=== PATIENT | male | born 1990 | race Caucasian/White ===

== ENCOUNTER → 2018-11-18 17:44 | Outpatient (CLI) | payer BC, SELFPAY ==
[2018-11-18 13:49] VITALS: BMI 43.9
== END ==
PROVIDERS: Referring Provider Surgery; Visit Provider Surgery
DX: T87.89 Other complications of amputation stump (principal); S62.632B Displaced fracture of distal phalanx of right middle finger, initial encounter for open fracture; S68.622A Partial traumatic transphalangeal amputation of right middle finger, initial encounter
CPT/HCPCS: 87070; 87075; 87077; 87186; 87205

== ENCOUNTER → 2018-12-19 16:25 | Outpatient (CLI) | payer BC, SELFPAY ==
[2018-12-19 15:38] VITALS: BMI 43.9
--- NOTE | 2018-12-19 16:30 | RAD_ITS ---
HISTORY: Trauma COMPARISON: None FINDINGS: XR right third finger 3 views There is bony and soft tissue amputation of the majority of the distal phalanx, right third finger. The residual distal phalangeal stump shows a comminuted fracture. Additional nondisplaced comminuted fracture of the middle phalanx. The middle phalangeal fracture shows a longitudinal component involving the majority of the phalanx. The proximal phalanx appears intact. No dislocation. Joint spaces are grossly preserved. No definite radiopaque foreign body. RAD/Finger(s) Min 2 Views IMPRESSION: 1. Significant amputation deformity with fractures of the distal and middle phalanges, right third finger. Details above. at 0550 Reported and signed by: Jasper Ness MD Electronically Signed: Jasper Ness, at 5:49 EST Tel , Service support ,
== END ==
LOC: MTRAD 16:29
PROVIDERS: Family Provider Nurse Practitioner Family; PCP Nurse Practitioner Family; Referring Provider Surgery; Visit Provider Surgery
DX: S68.622A Partial traumatic transphalangeal amputation of right middle finger, initial encounter (principal); S62.632B Displaced fracture of distal phalanx of right middle finger, initial encounter for open fracture; T87.89 Other complications of amputation stump; F17.200 Nicotine dependence, unspecified, uncomplicated
CPT/HCPCS: 73140

== ENCOUNTER 2018-12-24 09:33 | Day surgery (SDC) | payer BC, SELFPAY ==
[2018-12-19 15:38] VITALS: BMI 43.9
--- NOTE | 2018-12-23 21:07 | HP.PCM_ITS ---
History and Physical Date of Admission: 12/24/18 HISTORY OF PRESENT ILLNESS 28 year old male presents for evaluation of nonhealing ulcer tip amputation stump right long finger. On 10/12/18 he got his right long finger accidentally caught in a winch. He went to [facility] ED for treatment. Xray showed a traumatic amputation with osseous fragmentation of the residual third distal phalanx and comminuted third middle phalanx fractures. The wound was cleansed and partially repaired. No bone was seen after the partial repair. The wound was dressed and he was discharged on Cleocin. Since his ED visit he was seen at [facility] for management of his wound on 10/18/18. Repeat right hand x-ray showed a distal amputation of the tuft of the right middle finger, the proximal half of the tuft remains intact, no disruption of the articulating surface of the DIP joint. Some healing has occurred since the injury with a decrease in the size of the wound, but there is concern about the presence of bone in the wound and the risk of developing osteomyelitis. The patient presented to my office on 11/18/18 for evaluation. A wound culture was done which showed MRSE and Anaerobic cocci. He was placed on Doxycycline and Flagyl. At that November office visit, recommendations were made for surgical debridement with revision amputation. Patient wanted to hold off on any surgery at that time since he had noticed the initial wound getting smaller. He wanted to see if the wound would heal. Patient is right hand dominant. He states he has been back to work and is doing ok. He was evaluated last week in the office and the ulcer remains unhealed and is a little larger. It was also noted there was nail growth in the ulcer as well. Xray was done which showed significant amputation deformity with fracture right third finger. He presents today for operative debridement and revision amputation. PAST MEDICAL HISTORY Heart attack Pacemaker Sleep apnea PAST SURGICAL HISTORY None ALLERGIES No Known Allergies MEDICATIONS Omeprazole [Prilosec] doxycycline monohydrate FAMILY HISTORY Other - High cholesterol, Hypertension, Liver disease SOCIAL HISTORY Smoking Status: Current some day smoker alcohol intake: current substance use type: does not use REVIEW OF SYSTEMS General - Denies fever and weight loss. Has fatigue. Eyes - Denies cataracts and glaucoma. ENT - Denies nasal congestion and sore throat. Endocrine - Denies excessive thirst and urination. Skin - Denies suspicious lesions and skin cancer. Musculoskeletal - Denies joint pain, joint stiffness, weakness of muscles and joints, back pain, and arthritis. Has nonhealing ulcer tip amputation stump right long finger with associated distal phalanx tuft fracture. Neuro - Denies headaches. Cardiovascular - Denies chest pain, fatigue, and shortness of breath with exertion. Has a Biotronik Pacemaker (2016) for history of heart block. Psych - Denies anxiety and depression. Respiratory - Denies chronic cough and shortness of breath. Has sleep apnea. Gastrointestinal - Denies nausea, vomiting, diarrhea, and constipation. History of heart burn. Hematologic - Denies abnormal bruising and bleeding. Genitourinary - Denies hematuria and urinary frequency. PHYSICAL EXAMINATION General - Alert and oriented. HEENT - PERRL. EOMI. Throat is clear. Neck - Supple and non-tender. No cervical adenopathy. Lungs- Clear to auscultation. Heart - Regular rate and rhythm. Abdomen - Soft and non distended. Extremities - FROM. No axillary adenopathy. Radial pulses are palpable. On the right long finger is a nonhealing ulcer tip amputation. Nail bed complex was involved with the amputation. Partial repair was done in the ED as the tip amputation wound could not be completely approximated. Today the ulcer measures 1 x 1 x 0.2 cm. No exposed bone seen. Mild scabbing seen. No cellulitis, fluctuance, or purulent drainage. Mild tenderness to palpation. Anteriorly it looks as though there is some nail complex pushing through the skin. There are healed incisions on the middle phalanx right long finger both on the volar side and dorsal side. Neuro - CN II-XII grossly intact. Psych - Normal mood and affect. ASSESSMENT 1. Nonhealing ulcer tip amputation stump right long finger. 2. Partial traumatic transphalangeal amputation right long finger. 3. Displaced open facture distal phalanx right long finger. 4. Smoker. PLAN DEBRIDEMENT PROCEDURE After using Cetacaine spray for anesthesia, I used a #3 curette and sharply debrided the ulcer down into the subcutaneous tissue as an excisional debridement. Some of the subcutaneous tissue was removed with excisional debridement. Good bleeding was seen in the subcutaneous tissue after the excision debridement. In addition to the subcutaneous tissue, I also debrided some senescent cells, some increased bioburden, and some devitalized tissue. Patient tolerated the procedure well. Hemostasis was obtained with gentle pressure. The ulcer was redressed with Silver dressing. The dimensions of the wound increased after the excisional debridement to 1.1 x 1 x 0.3 cm. Patient has a nonhealing ulcer tip amputation stump right long finger. Since this was an open fracture, there is concerns about developing osteomyelitis. The wound culture showed MRSE and Anaerobic cocci. He was placed on Doxycycline and Flagyl. He states he had trouble with the Doxycycline and was only taking it once a day instead of twice a day. The Flagyl has been completed. He will continue the Doxycycline. Recommend taking the medication with food to see if he can tolerate it twice a day. I stressed to him that once a day is not adequate treatment. Also discussed with him that there appears to be residual nail complex present in the ulcer which will compromise healing. With the dimensions of the wound a little bigger since his last visit last month, I recommend operative debridement of this nonhealing ulcer with partial ostectomy of the distal phalanx with revision amputation with shortening of the finger probably into the middle phalanx to allow for soft tissue coverage. At the time of surgery, additional soft tissue and bone will be sent to Pathology and Microbiology to evaluate for osteomyelitis. Xray was done last week which showed significant amputation deformity with fracture right third finger. Patient has agreed to proceed with the revision amputation. Surgery will be scheduled for next week under general anesthesia on an outpatient basis. Patient was informed of the risks and complications of the procedure including alternatives to surgery. These were discussed with the patient personally. Patient voices understanding and wishes to proceed. Some of the risks and complications were included in a form from the [employer]. Some of the risks and complications that were discussed included but were not inclusive of failure to diagnose including symptom relief, pain, infection, numbness, stiffness, loss of digit, RSD (CRPS), need for further surgery, contracture, and wound healing problems. Encouraged patient to stop smoking as it may have deleterious effects on wound healing.
[2018-12-24 10:01] VITALS: BP 121/90; PULSE 63; RESP 18; TEMP 36.8; O2SAT 99; BMI 45.1
[2018-12-24] MEDS: Vancomycin IV 1,000 MG/200 ML BAG 200 MG IV (10:08)
--- NOTE | 2018-12-24 11:05 | BON_PTH ---
PATIENT: KATHY LOWERY LOC: [facility] U#:[id number] AGE/SX: 28/M ROOM: RE12/24/[address]: Dr. Landon Barrett MD : 1990 BED: DIS: 12/24/2018 SPEC #: [id number] RECD: 12/24/18 12:45 STATUS: HEATHER REJohn #: [id number] LEVI: 12/24/18 11:[address]: Landon Barertt DEPT: SURGICAL PATHOLOGY RECD BY: Armando Stewart ENTERED: 12/24/18 13:49 SP TYPE: Bone OTHR DR: Hien Harris, LASER ENGINEER-C Tissues: A - Bone of hand, NOS B - Bone of hand, NOS C - Bone of hand, NOS Procedures: Decalcification bone/plaque Surgery Specimen Level IV HEADER OPERATION: Revision amputation right long finger thru middle phalanx PRE-OP DIAGNOSIS: Nonhealing ulcer tip amputation stump right long finger, partial traumatic transphalangeal amputation right long finger TISSUE SUBMITTED: A - Amputation stump right long finger, B - Amputation stump ulcer/bone right long finger, C - Amputation stump proximal bone right long finger MICROSCOPIC DIAGNOSIS A. Right long finger stump, amputation: Skin with underlying soft tissue containing chronic inflammation, fibrosis and granulation. Bone with reactive and reparative chronic change. No evidence of acute osteomyelitis. B. Ulcer/bone, right long finger, biopsy: Fragments of bone and fibrous tissue with mild chronic inflammation. C. Bone, right long finger, amputation stump: Reactive and reparative change. No evidence of acute osteomyelitis. AM:khalif 12/27/18 MICROSCOPIC DESCRIPTION Slides are reviewed. GROSS DESCRIPTION A - Received in fixative is one container labeled with the patient's name and designated amputation stump right long finger. The specimen consists of a portion of a digit measuring 2.5 x 1.5 x 2 cm. A defect is noted in the central portion of the specimen. Present in the container are two detached pieces of soft tissue measuring in aggregate 1 x 0.5 x 0.1 cm. No area of ulceration is noted. Imaging Technician sections are submitted in two cassettes as follows: 1 - soft tissue, 2 - bone with surrounding tissue after decalcification. The bone is submitted in entirety. B - Received in fixative is one container labeled with the patient's name and designated amputation stump ulcer/bone right long finger. The specimen consists of two pieces of foley bone measuring in aggregate 0.4 x 0.4 x 0.1 cm. The entire specimen is submitted in one cassette after decalcification. C - Received in fixative is one container labeled with the patient's name and designated amputation stump proximal (bone) right long finger. The specimen consists of a piece of bone measuring 1 x 0.7 x 0.7 cm. The entire specimen is submitted in one cassette after decalcification. / SJ:rg 12/24/18 TC:3 CPT: 94680 x3, 51696 x3
[2018-12-24] MEDS: Mupirocin Ointment 22gm Tube 1 APPLIC (11:58)
--- NOTE | 2018-12-24 12:05 | PCM.OPRPT ---
Report of Operation Date of Procedure: 12/24/18 Pre-Operative Diagnosis: 1. Nonhealing ulcer tip amputation stump right long finger. 2. Partial traumatic transphalangeal amputation right long finger. 3. Displaced open facture distal phalanx right long finger. 4. Smoker. Post-Operative Diagnosis: Same. Surgery/Procedure Performed:: Revision amputation right long finger through middle phalanx. Description of Surgical Findings:: 28 year old male presents for evaluation of nonhealing ulcer tip amputation stump right long finger. On 10/12/18 he got his right long finger accidentally caught in a winch. He went to [facility] ED for treatment. Xray showed a traumatic amputation with osseous fragmentation of the residual third distal phalanx and comminuted third middle phalanx fractures. The wound was cleansed and partially repaired. No bone was seen after the partial repair. The wound was dressed and he was discharged on Cleocin. Since his ED visit he was seen at [facility] for management of his wound on 10/18/18. Repeat right hand x-ray showed a distal amputation of the tuft of the right middle finger, the proximal half of the tuft remains intact, no disruption of the articulating surface of the DIP joint. Some healing has occurred since the injury with a decrease in the size of the wound, but there is concern about the presence of bone in the wound and the risk of developing osteomyelitis. The patient presented to my office on 11/18/18 for evaluation. A wound culture was done which showed MRSE and Anaerobic cocci. He was placed on Doxycycline and Flagyl. At that November office visit, recommendations were made for surgical debridement with revision amputation. Patient wanted to hold off on any surgery at that time since he had noticed the initial wound getting smaller. He wanted to see if the wound would heal. Patient is right hand dominant. He states he has been back to work and is doing ok. His visit last week showed the ulcer was not healing and enlarging. Operative intervention was recommended. He had an xray done last week which showed significant amputation deformity with fracture right third finger. Patient was informed of the risks and complications of the procedure including alternatives to surgery. These were discussed with the patient personally. Patient voices understanding and wishes to proceed. Some of the risks and complications were included in a form from the [employer]. Some of the risks and complications that were discussed included but were not inclusive of failure to diagnose including symptom relief, pain, infection, numbness, stiffness, loss of digit, RSD (CRPS), need for further surgery, contracture, and wound healing problems. Encouraged patient to stop smoking as it may have deleterious effects on wound healing. Total tourniquet time - 50 minutes. beating machine operator: None Type of Anesthesia:: Block,[place]/Supplemental - xylocaine with epinephrine digital metacarpal block. Specimen's removed: 1. Amputation stump right long finger to Pathology. 2. Amputation stump ulcer right long finger, bone to Pathology and Microbiology. 3. Amputation stump ulcer right long finger, soft tissue to Microbiology. 4. Amputation stump right long finger, proximal bone to Pathology. Drains: None. Estimated Blood Loss (mL): 5 ml. Description of Procedure: Patient was taken to OR in supine position and [place] Block anesthesia was administered as the tourniquet was elevated to 300 mmHg. The right upper extremity was prepped and draped in the usual fashion. SCD's were placed for DVT prophylaxis. Perioperative antibiotics were given intravenously. Using xylocaine with epinephrine, a digital metacarpal block was administered to the right long finger for postop pain relief. After waiting 5 minutes for the anesthetic to take effect, I proceeded with excisional debridement of the nonhealing ulcer amputation tip right long finger. Some of the soft tissue was sent to Microbiology for culture. Half the bone that was debrided was sent to Pathology for analysis to evaluate for osteomyelitis. Half the bone was sent to Microbiology for culture. A positive culture will necessitate antibiotic therapy. I then marked dorsal and volar skin flaps at the level of the middle phalanx. At the time of the injury, most of the distal phalanx was lost with the tip amputation. The remaining bone was debrided because it was involved in the ulcer. At the level of the IP joint, there would not be sufficient soft tissue coverage. Incisions were made, and dissection was carried down through the extensor tendon dorsally and the flexor tendons volarly. a periosteal elevator was used to free up the soft tissue off the middle phalanx. The tip amputation was removed at the IP joint initially. The remaining amputation stump was sent to Pathology for analysis. I dissected out the ulnar and radial digital nerves on the volar aspect. I placed them on stretch and excised them and allowed them to retract proximally to minimize neuroma formation postoperatively. The nerve ends were also sent to Pathology for analysis. Using an oscillating saw, I excised the distal portion of the middle phalanx at the level of the articular surface. The bony edge was rasped to smooth out the edges. This proximal piece of bone was sent to Pathology for analysis to rule out osteomyelitis. I was able to close the dorsal and volar skin flaps without tension over the distal aspect of the middle phalanx. The wound was closed in a layered fashion with 5-0 Monocryl interrupted sutures for the deep dermis and subcutaneous tissue. The skin was approximated with 5-0 Nylon vertical mattress interrupted and simple interrupted sutures. The tourniquet was released after 50 minutes during the skin closure. Hemostasis was obtained with electrocautery. No hematomas noted. No vascular compromise noted on the amputation stump. Antibiotic ointment was applied to the suture line followed by xeroform gazue and 2x2 gauze and a2 inch Tomas wrap. Patient tolerated the procedure well and was sent to PACU in satisfactory condition. Patient will be sent home on antibiotics and pain medication. He will keep his right hand elevated during the initial postop period. Patient will followup in a week for a wound check and for discussion of the pathology report and the microbiology report. A positive culture will necessitate antibiotic therapy. The sutures will be removed in 2 weeks. Grafts/Implants Used: None. - Complications None. - Admit VTE Documentation VTE Present on Admission: No VTE Mechan Device Prophylaxis: SCD's VTE Pharm Prophylaxis ordered?: No Code Visit Surgery Charges CPT - 93008 ICD-10 - T87.89, S68.622A, S62.632B, F17.200
[2018-12-24 12:09] VITALS: BP 116/65; BP 121/90; PULSE 81; RESP 14; TEMP 36.2; O2SAT 95
[2018-12-24 12:15] VITALS: BP 116/60; BP 121/90; PULSE 67; RESP 16; O2SAT 93
--- NOTE | 2018-12-24 12:17 | PCM.DC ---
You will use the following diet at home:: No restrictions Discharge Activity: May not drive while taking narcotic pain medications., May Shower - tomorrow. wear plastic bag over right hand when showering., - - keep right hand elevated. Return to work on:: 12/25/18 - tentative. May shower in (days): 1 - wear plastic bag over right hand when showering. May resume sexual activity in: No Restrictions Weight Bearing Status: Weight bearing as tolerated Keep extremity elevated above heart level: Right Arm Call your doctor if your incision/area has: Continuous Slow Oozing, Sudden Increased Bleeding, Increased Pain/ Swelling, Increased Redness, Foul Smelling Discharge, Swelling at the incision site Call your doctor if you observe: Fever of 101 or Higher, Coldness, Increased Pain, Shortness of breath, Chest pain, Calf discomfort, Uncontrolled pain Suture Line Care: - - after dressing removed in the office, apply antibiotic ointment to suture line daily. Change Dressing in (Days):: 7 - will change dressing in office. if dressing becomes soiled before that it can be removed. Cleanse incision/area with: - - wear plastic bag over right hand when showering. Allergies/Adverse Reactions: Allergies No Known Allergies Allergy (Verified 12/20/18 14:04) Medications to take at Discharge Omeprazole [Prilosec] 40 mg PO BID 08/18/16 doxycycline monohydrate 100 mg capsule 100 mg PO BID 30 Days #60 cap 11/22/18 Oxycodone HCl/Acetaminophen [Percocet 5/325] 1 - 2 tab PO 4X/DAY PRN PRN 7 Days #50 tab 12/24/18 levoFLOXacin tablet [Levaquin tablet] 500 mg PO DAILY #21 tab 12/24/18 The following prescriptions were given: levoFLOXacin tablet [Levaquin tablet] 500 mg PO DAILY #21 tab Oxycodone HCl/Acetaminophen [Percocet 5/325] 1 - 2 tab PO 4X/DAY PRN PRN 7 Days #50 tab PRN Reason: Pain Primary Care Physician: Hien Harris NP-C [Primary Care Provider] - Test Results: Test results from this visit will be discussed in further detail at your follow-up appointment, if applicable. Please Follow Up With: Landon Barrett MD When: one week. call [phone] for appt. Proposed Discharge Date: 12/24/18
[2018-12-24 12:20] VITALS: BP 116/65; BP 121/90; PULSE 69; RESP 16; O2SAT 92
--- NOTE | 2018-12-24 12:23 | DCINST_ITS ---
You will use the following diet at home:: No restrictions Discharge Activity: May not drive while taking narcotic pain medications., May Shower - tomorrow. wear plastic bag over right hand when showering., - - keep right hand elevated. Return to work on:: 12/25/18 - tentative. May shower in (days): 1 - wear plastic bag over right hand when showering. May resume sexual activity in: No Restrictions Weight Bearing Status: Weight bearing as tolerated Keep extremity elevated above heart level: Right Arm Call your doctor if your incision/area has: Continuous Slow Oozing, Sudden Increased Bleeding, Increased Pain/ Swelling, Increased Redness, Foul Smelling Discharge, Swelling at the incision site Call your doctor if you observe: Fever of 101 or Higher, Coldness, Increased Pain, Shortness of breath, Chest pain, Calf discomfort, Uncontrolled pain Suture Line Care: - - after dressing removed in the office, apply antibiotic ointment to suture line daily. Change Dressing in (Days):: 7 - will change dressing in office. if dressing becomes soiled before that it can be removed. Cleanse incision/area with: - - wear plastic bag over right hand when showering. Allergies/Adverse Reactions: Allergies No Known Allergies Allergy (Verified 12/20/18 14:04) Medications to take at Discharge Omeprazole [Prilosec] 40 mg PO BID 08/18/16 doxycycline monohydrate 100 mg capsule 100 mg PO BID 30 Days #60 cap 11/22/18 Oxycodone HCl/Acetaminophen [Percocet 5/325] 1 - 2 tab PO 4X/DAY PRN PRN 7 Days #50 tab 12/24/18 levoFLOXacin tablet [Levaquin tablet] 500 mg PO DAILY #21 tab 12/24/18 The following prescriptions were given: levoFLOXacin tablet [Levaquin tablet] 500 mg PO DAILY #21 tab Oxycodone HCl/Acetaminophen [Percocet 5/325] 1 - 2 tab PO 4X/DAY PRN PRN 7 Days #50 tab PRN Reason: Pain Primary Care Physician: Hien Harris NP-C [Primary Care Provider] - Test Results: Test results from this visit will be discussed in further detail at your follow- up appointment, if applicable. Please Follow Up With: Landon Barrett MD When: one week. call [phone] for appt. Proposed Discharge Date: 12/24/18
[2018-12-24 12:26] VITALS: BP 121/62; BP 121/90; PULSE 77; RESP 16; TEMP 36.2; O2SAT 93
[2018-12-24 12:53] VITALS: BP 121/90
== END 2018-12-24 12:57 | disposition home or self-care (01) ==
LOC: SDC 09:35 → AC 09:36
PROVIDERS: Family Provider Nurse Practitioner Family; PCP Nurse Practitioner Family; Referring Provider Surgery; Visit Provider Surgery
PROC: (CPT 26951; principal; 2018-12-24 10:50)
DX: T87.89 Other complications of amputation stump (principal); Y83.8 Other surgical procedures as the cause of abnormal reaction of the patient, or of later complication, without mention of misadventure at the time of the procedure; Y92.9 Unspecified place or not applicable; S68.622A Partial traumatic transphalangeal amputation of right middle finger, initial encounter; W31.89XA Contact with other specified machinery, initial encounter; F17.200 Nicotine dependence, unspecified, uncomplicated; Z95.0 Presence of cardiac pacemaker; G47.30 Sleep apnea, unspecified; E78.00 Pure hypercholesterolemia, unspecified; I10 Essential (primary) hypertension; J45.909 Unspecified asthma, uncomplicated; G25.81 Restless legs syndrome; K21.9 Gastro-esophageal reflux disease without esophagitis
CPT/HCPCS: 01830; 26951; 87070; 87075; 87077; 87102; 87186; 87205; 87206; 88304; 88305; 88311; J7120; J2405

== ENCOUNTER → 2024-11-25 | Outpatient (CLI) | payer OTHER, SELFPAY ==
--- NOTE | 2024-11-25 11:47 | MRI_ITS ---
STUDY: MRI RIGHT ELBOW REASON FOR EXAM: Male, 34 years old. STRAIN MUSCLE/FASC/TEND BICEPS TECHNIQUE: Standardized fat and water weighted pulse sequences were obtained in all 3 orthogonal planes. COMPARISON: None. FINDINGS: Normal radio-capitellum articulation. Normal radial collateral ligamentous complex. Normal common extensor tendon. Normal ulnotrochlear articulation. Normal ulnar collateral ligamentous complex. Normal common flexor tendon. The cubital tunnel is normal, with a normal ulnar nerve. There is tendinosis with a high-grade partial tear of the distal biceps tendon (sagittal T2 series 4 image 15; axial T2 series 7 images 6-10). Normal lacertus fibrosis. Normal brachialis musculotendinous insertion. Normal triceps tendon and teno-osseous insertion. Normal olecranon process. The visualized distal humerus, proximal radius, and ulna are normal. The visualized muscles of the distal arm and proximal forearm are normal. There is mild subcutaneous soft tissue edema along the lateral aspect of the elbow. MRI/Upper Ext Joint Only(Routine) IMPRESSION: Tendinosis with a high-grade partial tear of the distal biceps tendon. Mild subcutaneous soft tissue edema along the lateral aspect of the elbow. No acute osseous or ligamentous injury. Electronically Signed: Rhett Sandoval MD at 14:06 EST ,
[2024-11-25 12:40] VITALS: BP 125/84; PULSE 90; RESP 18; O2SAT 95
[2024-11-25 12:50] VITALS: BP 152/107; PULSE 90; RESP 18; O2SAT 94
[2024-11-25 13:00] VITALS: BP 140/101; PULSE 91; RESP 18; O2SAT 94
[2024-11-25 13:09] VITALS: BP 143/111; PULSE 94; RESP 18; O2SAT 96
[2024-11-25 13:16] VITALS: BP 144/101; PULSE 87; RESP 18; O2SAT 96
== END | disposition home or self-care (01) ==
PROVIDERS: PCP Nurse Practitioner Family; Referring Provider Orthopaedic Surgery; Visit Provider Orthopaedic Surgery
DX: S46.211A Strain of muscle, fascia and tendon of other parts of biceps, right arm, initial encounter (principal); X58.XXXA Exposure to other specified factors, initial encounter